=== PATIENT | male | born 1965 | race Caucasian/White ===

== ENCOUNTER 2017-02-16 08:56 | Day surgery (SDC) | payer MEDICARE, OTHER ==
[2015-12-10 08:52] VITALS: BMI 34.0
[2017-02-16] MEDS ORDERED: Lactated Ringer's 500 ML IV ONE (09:16)
[2017-02-16 09:35] VITALS: TEMP 98
[2017-02-16] MEDS ORDERED: Propofol 10 mg/ml Inj (20 ML) ONE (11:53)
[2017-02-16] MEDS ORDERED: EPINEPHrine 1 mg/ml (1:1000) Inj ONE (12:06)
[2017-02-16 12:44] VITALS: BP 110/70; PULSE 90; RESP 12; O2SAT 99
== END 2017-02-16 14:09 | disposition home or self-care (01) ==
LOC: H.ENDO 08:56
PROVIDERS: ATTEND Internal Medicine Gastroenterology
DX: R10.13 Epigastric pain (principal)
CPT/HCPCS: 43251; 88305; J0171; J2001; J2704; J7120

== ENCOUNTER 2017-04-27 08:57 | Day surgery (SDC) | payer MEDICARE, OTHER ==
[2015-12-10 08:52] VITALS: BMI 34.0
[2017-04-27] MEDS ORDERED: Lactated Ringer's 500 ML IV ONE (09:23)
[2017-04-27] MEDS ORDERED: Propofol 10 mg/ml Inj (20 ML) ONE (10:47)
[2017-04-27] MEDS ORDERED: Lidocaine 2% MPF (5 ml) Inj ONE (10:47)
[2017-04-27 11:08] VITALS: O2SAT 99
[2017-04-27 11:11] VITALS: BP 120/72; PULSE 88; RESP 12
[2017-04-27 11:13] VITALS: TEMP 98
== END 2017-04-27 13:58 | disposition home or self-care (01) ==
LOC: H.ENDO 08:57
PROVIDERS: ATTEND Internal Medicine Gastroenterology
DX: K31.9 Disease of stomach and duodenum, unspecified (principal); G47.33 Obstructive sleep apnea (adult) (pediatric); I10 Essential (primary) hypertension; F41.9 Anxiety disorder, unspecified; K44.9 Diaphragmatic hernia without obstruction or gangrene; K22.8 Other specified diseases of esophagus; K27.9 Peptic ulcer, site unspecified, unspecified as acute or chronic, without hemorrhage or perforation
CPT/HCPCS: 43239; 82948; 88305; J2704; J7120